=== PATIENT | male | born 1995 | race African-American/Black ===

== ENCOUNTER 2018-02-11 22:51 | Emergency (ER) | payer SELFPAY ==
[~2018-02-11] VITALS: Ht 177.8 cm; Wt 118.0 kg
[2018-02-12 04:53] LABS: CLARITY URINE CLEAR (CLEAR); COLOR URINE YELLOW (YELLOW); KETONES URINE NEGATIVE (NEGATIVE); LEUKOCYTE ESTERASE URINE NEGATIVE (NEGATIVE); NITRITE URINE NEGATIVE (NEGATIVE); OCCULT BLOOD URINE NEGATIVE (NEGATIVE); PROTEIN URINE NEGATIVE (NEGATIVE); SPECIFIC GRAVITY URINE 1.015 (1.005-1.030)
[2018-02-12] MEDS ORDERED: LIDOCAINE HCL 1% 20ML VIAL (Pyxis) INJ INFIL ONE (06:00)
[2018-02-12] MEDS ORDERED: CEFTRIAXONE SODIUM 250 MG/VIAL IM ONE (06:00)
[2018-02-12] MEDS ORDERED: AZITHROMYCIN 500 MG TABLET PO ONE (06:00)
[2018-02-12 06:32] VITALS: BP 116/81
== END 2018-02-12 09:00 | disposition home or self-care (01) ==
LOC: ER 02-12 08:59
DX: N48.89 Other specified disorders of penis (principal); F12.10 Cannabis abuse, uncomplicated; F17.200 Nicotine dependence, unspecified, uncomplicated; Z20.2 Contact with and (suspected) exposure to infections with a predominantly sexual mode of transmission
CPT/HCPCS: 81003; 96372; 99283; J0696; J3490

== ENCOUNTER 2018-03-23 21:39 | Emergency (ER) | payer SELFPAY ==
[~2018-03-23] VITALS: Ht 177.8 cm; Wt 114.0 kg
[2018-03-24 03:00] LABS: CLARITY URINE CLEAR (CLEAR); COLOR URINE YELLOW (YELLOW); KETONES URINE TRACE (NEGATIVE); LEUKOCYTE ESTERASE URINE NEGATIVE (NEGATIVE); NITRITE URINE NEGATIVE (NEGATIVE); OCCULT BLOOD URINE NEGATIVE (NEGATIVE); PROTEIN URINE NEGATIVE (NEGATIVE)
[2018-03-24 04:48] VITALS: BP 124/87
== END 2018-03-24 04:51 | disposition home or self-care (01) ==
LOC: ER 21:39
DX: K21.9 Gastro-esophageal reflux disease without esophagitis (principal); K46.9 Unspecified abdominal hernia without obstruction or gangrene; N50.811 Right testicular pain; F12.10 Cannabis abuse, uncomplicated; F17.200 Nicotine dependence, unspecified, uncomplicated
CPT/HCPCS: 76870; 93976; 99284

== ENCOUNTER 2023-12-27 20:38 | Emergency (ER) | payer MEDICAID ==
[~2023-12-27] VITALS: Ht 188 cm; Wt 137.0 kg
[2023-12-27 20:40] VITALS: TEMP 98.6; O2SAT 99
[2023-12-27] MEDS: IBUPROFEN 600MG TABLET PO STA (20:49)
[2023-12-27] MEDS ORDERED: IBUP-2029 MT (22:38)
[2023-12-27] MEDS ORDERED: CYCL10TA21 MT (22:38)
[2023-12-27 22:39] VITALS: BP 130/80; PULSE 90; RESP 15; O2SAT 99
[2023-12-27] MEDS ORDERED: ACETAMINOPHEN 325MG TABLET PO ONE (22:45)
== END 2023-12-27 22:49 | disposition home or self-care (01) ==
LOC: ER 20:38
DX: R00.2 Palpitations (principal); F12.10 Cannabis abuse, uncomplicated
CPT/HCPCS: 71045; 93005; 99283; Z7610